=== PATIENT | female | born 1980 | race Caucasian/White ===

== ENCOUNTER → 2025-03-05 13:24 | Outpatient (REF) | payer OTHER, BC, SELFPAY | LOC: WDC 13:24 | PROVIDERS: ATTENDING PHYSICIAN Obstetrics & Gynecology Gynecology; FAMILY PHYSICIAN Nurse Practitioner Family | DX: Z12.31 Encounter for screening mammogram for malignant neoplasm of breast (principal) | CPT/HCPCS: 77063; 77067 ==